=== PATIENT | male | born 1990 | race Caucasian/White ===

== ENCOUNTER 2017-01-31 10:48 | Emergency (ER) | payer OTHER ==
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
[2017-01-31 11:41] VITALS: BP 118/68
--- NOTE | 2017-01-31 14:16 | Diagnostic Imaging Report ---
[facility] [address] [facility] [address] [id number] Report Submission Date: Jan 31, 2017 11:13:39 AM CDT Patient Study Name: HECTOR SCHWARZ Date: Jan 31, 2017 10:59:12 AM CDT Modality Type: CR Gender: M Description: UPPER EXTREMITY : 86 Institution: [facility] Physician AUSTIN VAZ - ER Right hand three views Clinical history pain Technique AP lateral oblique FINDINGS: There is a healed fracture of 5th metacarpal which is foreshortened. No acute fracture is seen. The digits appear intact. The carpal rows are intact. IMPRESSION: Healed fracture of the 5th metacarpal No acute fracture line identified The healed fracture of the 5th metacarpal results in foreshortening widening and sclerosis the 5th metacarpal Electronically signed on Jan 31, 2017 11:13:39 AM CDT by: Harris CHAVEZ
== END 2017-01-31 11:38 | disposition home or self-care (01) ==
LOC: ED 10:48
DX: S60.221A Contusion of right hand, initial encounter (principal); X58.XXXA Exposure to other specified factors, initial encounter; Y93.9 Activity, unspecified; Y99.9 Unspecified external cause status
CPT/HCPCS: 73130; 99283